=== PATIENT | male | born 2000 | race Two or more races ===

== ENCOUNTER 2021-03-18 20:49 | Emergency (ER) | payer SELFPAY ==
[2021-03-18 20:58] VITALS: BP 111/60; PULSE 89; TEMP 98.1; BMI 19.3
[2021-03-18] MEDS ORDERED: DOXYCYCLINE HYCLATE 100 MG CAPSULE PO ONE (21:09)
[2021-03-18] MEDS ORDERED: DOXYCYCLINE HYCLATE 100 MG TABLET PO ONE (21:22)
== END 2021-03-18 21:28 | disposition home or self-care (01) ==
LOC: FER 20:49
PROC: 3E0233Z Introduction of Anti-inflammatory into Muscle, Percutaneous Approach (ICD-10-PCS; principal; 2021-03-18)
DX: Z20.2 Contact with and (suspected) exposure to infections with a predominantly sexual mode of transmission (principal)
CPT/HCPCS: 99284-25